=== PATIENT | female | born 1995 | race Caucasian/White ===

== ENCOUNTER 2018-05-02 22:29 | Emergency (ER) | payer SELFPAY ==
[2018-05-02 23:44] LABS: ABSOLUTE EOSINOPHILS # (AUTO) 0.3 10^3/uL (0.0-0.6); ABSOLUTE LYMPHOCYTES (AUTO) 2.4 10^3/uL (0.5-4.7); ABSOLUTE MONOCYTES (AUTO) 0.7 10^3/uL (0.1-1.4); ABSOLUTE NEUT (AUTO) 8.8 10^3/uL (1.7-8.2); BASOPHILS % (AUTO) 0.4 % (0-2); EOSINOPHILS % (AUTO) 2.1 % (0-6); HEMATOCRIT 41.8 % (36.0-47.0); HEMOGLOBIN 14.2 g/dL (12.0-15.5); LYMPHOCYTES % (AUTO) 19.8 % (13-45); MEAN CORPUSCULAR HEMOGLOBIN 31.2 pg (27.0-33.4); MEAN CORPUSCULAR VOLUME 92 fl (80-97); PLATELET COUNT 303 10^3/uL (150-450); RED BLOOD COUNT 4.56 10^6/uL (3.72-5.28); RED CELL DISTRIBUTION WIDTH 12.4 % (11.5-14.0); SEGMENTED NEUTROPHILS % (AUTO) 71.7 % (42-78); TOTAL CELLS COUNTED % (AUTO) 100 %; WHITE BLOOD COUNT 12.2 10^3/uL (4.0-10.5)
[2018-05-02 23:50] LABS: APPEARANCE,URINE CLEAR; BILIRUBIN,URINE NEGATIVE (NEGATIVE); COLOR,URINE YELLOW; GLUCOSE, URINE NEGATIVE (NEGATIVE); KETONES,URINE NEGATIVE (NEGATIVE); LEUKOCYTE ESTERASE,URINE NEGATIVE (NEGATIVE); NITRITE,URINE NEGATIVE (NEGATIVE); PROTEIN,URINE 30 mg/dL (NEGATIVE); URINE SPECIFIC GRAVITY 1.015
[2018-05-03 00:35] LABS: ALANINE AMINOTRANSFERASE 26 U/L (9-52); ALBUMIN 3.9 g/dL (3.5-5.0); ALKALINE PHOSPHATASE 70 U/L (38-126); ANION GAP 14 (5-19); ASPARTATE AMINO TRANSFERASE 18 U/L (14-36); BILIRUBIN,DIRECT 0.3 mg/dL (0.0-0.4); BILIRUBIN,TOTAL 0.6 mg/dL (0.2-1.3); BLOOD UREA NITROGEN 10 mg/dL (7-20); CALCIUM 9.4 mg/dL (8.4-10.2); CARBON DIOXIDE 27 mmol/L (22-30); CHLORIDE 104 mmol/L (98-107); GLUCOSE 81 mg/dL (75-110); POTASSIUM 4.3 mmol/L (3.6-5.0); SODIUM 144.7 mmol/L (137-145); TOTAL PROTEIN 7.4 g/dL (6.3-8.2)
[2018-05-03] MEDS ORDERED: MORPHINE SULFATE 10 MG/ML INJ IV ONE ×2 (00:36→02:22)
[2018-05-03] MEDS ORDERED: NORMAL SALINE 1000 ML 1,000 ML IV ONE (00:36)
--- NOTE | 2018-05-03 00:36 | ER Document Report ---
ED GI/ - General Chief Complaint: Abdominal Pain Stated Complaint: RIGHT SIDE PAIN Time Seen by Provider: 05/03/18 00:29 Notes: The patient is a 22-year-old female who presents with 3 days of intermittent right upper quadrant abdominal pain is worse when she coughs or pushes on her abdomen. She denies nausea, vomiting, flank pain, diarrhea, constipation, dysuria, hematuria, rash or right lower quadrant abdominal pain (despite medical referral coordinator note). TRAVEL OUTSIDE OF THE [place] IN LAST 30 DAYS: No - Related Data Allergies/Adverse Reactions: No Known Allergies Allergy (Verified 09/09/16 08:30) Past Medical History - General Information source: Patient - Social History Smoking Status: Unknown if Ever Smoked Family History: Reviewed & Not Pertinent - Old toward on the day of will Pulmonary Medical History: Reports: Hx Asthma Neurological Medical History: Reports: Hx Migraine Skin Medical History: Reports Hx MRSA Past Surgical History: Reports: Hx Tonsillectomy - adnoids - Immunizations Immunizations up to date: Yes Hx Diphtheria, Pertussis, Tetanus Vaccination: Yes Review of Systems - Review of Systems Notes: REVIEW OF SYSTEMS: CONSTITUTIONAL: -fevers, -chills EENT: -eye pain, -difficulty swallowing, -nasal congestion CARDIOVASCULAR: -chest pain, -syncope. RESPIRATORY: -cough, -SOB GASTROINTESTINAL: RUQ abdominal pain, -nausea, -vomiting, -diarrhea GENITOURINARY: -dysuria, -hematuria MUSCULOSKELETAL: -back pain, -neck pain SKIN: -rash or skin lesions. HEMATOLOGIC: -easy bruising or bleeding. LYMPHATIC: -swollen, enlarged glands. NEUROLOGICAL: -altered mental status or loss of consciousness, -headache, - neurologic symptoms PSYCHIATRIC: -anxiety, -depression. ALL OTHER SYSTEMS REVIEWED AND NEGATIVE. Physical Exam - Vital signs Vitals: Temp Pulse Resp BP Pulse Ox 98.8 F 104 H 22 H 122/67 97 05/02/18 22:52 05/02/18 22:52 05/02/18 22:52 05/02/18 22:52 05/02/18 22:52 - Notes Notes: PHYSICAL EXAMINATION: GENERAL: Well-appearing, well-nourished and in no acute distress. HEAD: Atraumatic, normocephalic. EYES: Pupils equal round and reactive to light, extraocular movements intact, sclera anicteric, conjunctiva are normal. ENT: nares patent, oropharynx clear without exudates. Moist mucous membranes. NECK: Normal range of motion, supple without lymphadenopathy LUNGS: Breath sounds clear to auscultation bilaterally and equal. No wheezes rales or rhonchi. HEART: Mild tachycardia, regular rhythm. ABDOMEN: Soft, mild RUQ tenderness, normoactive bowel sounds. No guarding, no rebound. No masses appreciated. EXTREMITIES: Normal range of motion, no pitting or edema. No cyanosis. NEUROLOGICAL: Cranial nerves grossly intact. Normal speech, normal gait. Normal sensory and motor exams. PSYCH: Normal mood, normal affect. SKIN: Warm, Dry, normal turgor, no rashes or lesions noted. Course - Re-evaluation Re-evalutation: Patient with right upper quadrant abdominal pain and nausea. Ultrasound shows evidence of cholelithiasis and she had a positive sonographic Gupta sign. Her LFTs and bilirubin were normal. Initially, patient said she will speak to the surgeon to discuss removal today due to the symptomatic cholelithiasis. She was kept n.p.o. However, she began to feel much better and started to eat multiple candy bars and chips that her friend brought her, even though she was told that she had to remain n.p.o. Patient said that she would follow-up with the surgeon as an outpatient since she was feeling much better to discuss scheduling a cholecystectomy. Patient given very strict return precautions, especially for acute cholecystitis symptoms and she understands. She will eat a low-fat diet and will follow-up with the surgery clinic tomorrow. - Vital Signs Vital signs: Temp Pulse Resp BP Pulse Ox 98.8 F 104 H 22 H 122/67 97 05/02/18 22:52 05/02/18 22:52 05/02/18 22:52 05/02/18 22:52 05/02/18 22:52 - Laboratory Result Diagrams: 05/02/18 23:30 05/02/18 23:30 Laboratory results interpreted by me: 05/02/18 05/02/18 23:30 23:30 WBC 12.2 H Absolute Neutrophils 8.8 H Urine Protein 30 H Urine Urobilinogen 4.0 H - Diagnostic Test Radiology reviewed: Image reviewed, Reports reviewed Radiology results interpreted by me: RUShantel US: Cholelithiasis with positive sonographic Gupta sign. If surgery is not initially considered, consider follow-up hepatobiliary scan to better evaluate for cholecystitis. Discharge - Discharge Clinical Impression: Cholelithiasis Qualifiers: Cholelithiasis location: other site Biliary obstruction: without biliary obstruction Qualified Code(s): K80.80 - Other cholelithiasis without obstruction Condition: Stable Disposition: HOME, SELF-CARE Additional Instructions: You must follow-up with the surgeon this week for further evaluation and treatment. Return immediately to the ER if the pain becomes very severe, he began to have uncontrollable vomiting or you have fevers. ABDOMINAL PAIN: There are many causes of abdominal pain. Pain can mean a serious problem requiring surgery (such as appendicitis). It can also be an innocent problem that goes away on its own (such as a viral infection). Often, time must pass to determine the cause of pain. The physician does not feel that hospitalization is necessary, at present. Things may change within the next 24 hours. Call the doctor or come back for re- examination if any problems occur, such as: (1) Pain that becomes more severe, steady, or becomes concentrated in one specific area. Also, pain that is more severe with movement or coughing. (2) Vomiting that persists or becomes more frequent. (3) Blood in the vomitus, urine, or bowel movements. Blood in the stool may have a tarry or black appearance. (4) Shaking chills or fever greater than 100 degrees F. (5) The abdomen becomes more distended or swollen. (6) Bowel movements cease. (7) Failure to improve as expected. GALLBLADDER DISEASE: Your evaluation shows evidence of gallbladder disease. The gallbladder is a pouch under the liver which stores bile. Stones, infection, or irritation of the gallbladder cause attacks of pain. Certain foods -- fats in particular -- may provoke attacks. The usual treatment for gallbladder disease is surgical removal of the gallbladder -- called a cholecystectomy. You will be referred to a physician qualified to advise you on the best treatment for your problem. Hospitalization is not necessary. Take clear liquids only until you are painfree. After that, you should stay on a low-fat diet, with frequent SMALL meals. Call the doctor or return at once if you develop severe pain, repeated vomiting, fever, or jaundice (a yellow color in the skin and whites of the eyes) . LOW-FAT DIET: The physician has recommended a low-fat diet. This diet is often used for gallbladder or pancreas problems. Your meals should be high-carbohydrate (potato, apples, noodles, breads, vegetables). Eat fish or skinless chicken (boiled or baked rather than fried) for protein. Beans and peas are good sources of fat-free protein. Soups are usually very low-fat. Don't eat anything fried. Avoid red meats. Avoid most dairy products. Skim milk and non-fat yogurt are OK. Most popular cheeses are very high-fat. Don't add butter or sauces -- use lemon or pepper instead. If you like salads, use one of the new "non-fat" dressings. "Fast Food" is "fat food." There is virtually nothing from a typical fast- food restaurant that you can eat. Fish patties and chicken nuggets are almost always deep-fat fried. "Special Sauces" are mostly fat. TORADOL INJECTION: You have been given an injection of ketorolac tromethamine (Toradol). This is an excellent, safe drug for pain control. It also has potent antiinflammatory action. You should have significant pain relief within about one hour. Toradol is not addicting and is non-sedating. It does not interfere with driving or work. Call or return if you develop itching, hives, shortness of breath, or rash. PAIN MEDICATION INJECTION: You have received an injection of a pain medication. You should experience significant pain relief within 45 minutes. This drug is a narcotic - - it will impair your judgement, slow your reaction time and make you sleepy ( as well as relieve your pain). Narcotics also can cause nausea. You should not drive, work with machinery, or perform any task requiring mental alertness until all effects of the medication are gone -- six to eight hours. Do not take any alcohol, or sedatives, and do not take any other medication without checking with your physician. AN[place] MEDICATION: You have been given a medication to suppress nausea and vomiting. This type of medication can be given as a shot, pill, or suppository. It will usually last for many hours. Pills and shots usually last six to eight hours, suppositories last about 12 hours. For the typical illness, only one or two doses of the medication may be necessary. Mild lightheadedness may occur. This type of medicine can cause drowsiness. Do not drive or operate dangerous machinery while under its influence. Do not mix with alcohol. See your doctor at once if you have muscle spasms or tightness, or uncontrollable motions (particularly of the neck, mouth, or jaw). Persistent vomiting or severe lightheadedness should also be evaluated by the physician. ORAL NARCOTIC MEDICATION: You have been given a prescription for pain control. This medication is a narcotic. It's best taken with food, as nausea can result if taken on an empty stomach. Don't operate machinery or drive within six hours of taking this medication. Do not combine this medicine with alcohol, or with any medication which can cause sedation (such as cold tablets or sleeping pills) unless you get permission from the physician. Narcotics tend to cause constipation. If possible, drink plenty of fluids and eat a diet high in fiber and fruits. Please be aware that prescription narcotics also have the potential for abuse. People become addicted to these medications because of the general sense of wellbeing that they induce. This feeling along with a significant reduction in tension, anxiety, and aggression provides a stimulating seductive quality to these drugs. Once your pain is under control, we encourage you to discard your unused narcotics. FOLLOW-UP CARE: If you have been referred to a physician for follow-up care, call the physician s office for an appointment as you were instructed or within the next two days. If you experience worsening or a significant change in your symptoms, notify the physician immediately or return to the Emergency Department at any time for re-evaluation. Prescriptions: Hydrocodone/Acetaminophen [[place] 5-325 mg Tablet] 1 tab PO Q6H PRN #10 tablet PRN Reason: Ondansetron [Zofran Odt 4 mg Tablet] 1 - 2 tab PO Q4H PRN #15 tab.rapdis PRN Reason: For Nausea/Vomiting Referrals: SURGICALIST,SURGICAL MD [ACTIVE STAFF] - Follow up tomorrow SURGERY [Provider Group] - Follow up tomorrow
--- NOTE | 2018-05-03 02:09 | RADIOLOGY REPORT (SQ) ---
Ultrasound right upper quadrant on 05/03/2018 at 1:49 AM CLINICAL INDICATION: Right upper quadrant pain COMPARISON: None FINDINGS: Multiple sonographic images are obtained throughout the right upper quadrant, both transverse and sagittal images are obtained. Visualized aorta appears unremarkable without evidence of an aneurysm. Visualized liver is homogeneous without focal lesion or evidence of intrahepatic biliary ductal dilatation. No free fluid is noted in the right upper quadrant. Visualized hepatic vasculature is patent and with a normal directional flow. Right kidney shows no hydronephrosis. There are multiple echogenic foci with posterior shadowing in the gallbladder consistent with multiple gallstones nearly filling the gallbladder. No definite gallbladder wall thickening or pericholecystic fluid is noted. Technologist noted a positive sonographic Gupta sign. The common duct measures 5 mm which is within normal limits mitigating against obstruction of the biliary tree. IMPRESSION: Cholelithiasis with positive sonographic Gupta sign. If surgery is not initially considered, consider follow-up hepatobiliary scan to better evaluate for cholecystitis.
[2018-05-03] MEDS ORDERED: KETOROLAC TROMETHAMINE INJ/PF 30 MG/1 ML SDV IV ONE (02:22)
[2018-05-03] MEDS ORDERED: HYDROCODONE/ACETAMINOPHEN 5-325 MG TABLET PO ONE (05:12)
[2018-05-03 05:58] VITALS: BP 103/88
== END 2018-05-03 05:58 | disposition home or self-care (01) ==
LOC: ER 22:29
DX: K80.80 Other cholelithiasis without obstruction (principal); R10.11 Right upper quadrant pain; R11.0 Nausea; Z86.14 Personal history of Methicillin resistant Staphylococcus aureus infection
CPT/HCPCS: 96376; 99284; 96361; 96374; 96375; 36415; 85025; 81025; 80053; 81001; 76705; J1885; J2270; J7030

== ENCOUNTER 2018-05-03 21:34 | Observation (INO) | payer SELFPAY ==
[2018-05-03 22:51] LABS: ABSOLUTE EOSINOPHILS # (AUTO) 0.3 10^3/uL (0.0-0.6); ABSOLUTE LYMPHOCYTES (AUTO) 2.2 10^3/uL (0.5-4.7); ABSOLUTE MONOCYTES (AUTO) 0.7 10^3/uL (0.1-1.4); ABSOLUTE NEUT (AUTO) 6.4 10^3/uL (1.7-8.2); BASOPHILS % (AUTO) 0.3 % (0-2); EOSINOPHILS % (AUTO) 3.3 % (0-6); HEMATOCRIT 37.6 % (36.0-47.0); HEMOGLOBIN 13.3 g/dL (12.0-15.5); MEAN CORPUSCULAR HEMOGLOBIN 32.4 pg (27.0-33.4); MEAN CORPUSCULAR HGB CONC 35.3 g/dL (32.0-36.0); MEAN CORPUSCULAR VOLUME 92 fl (80-97); MONOCYTES % (AUTO) 7.1 % (3-13); PLATELET COUNT 267 10^3/uL (150-450); RED BLOOD COUNT 4.09 10^6/uL (3.72-5.28); RED CELL DISTRIBUTION WIDTH 12.3 % (11.5-14.0); SEGMENTED NEUTROPHILS % (AUTO) 66.3 % (42-78); TOTAL CELLS COUNTED % (AUTO) 100 %; WHITE BLOOD COUNT 9.7 10^3/uL (4.0-10.5)
[2018-05-03 22:53] LABS: APPEARANCE,URINE SLIGHTLY-CLOUDY; BILIRUBIN,URINE NEGATIVE (NEGATIVE); COLOR,URINE YELLOW; GLUCOSE, URINE NEGATIVE (NEGATIVE); KETONES,URINE NEGATIVE (NEGATIVE); LEUKOCYTE ESTERASE,URINE NEGATIVE (NEGATIVE); NITRITE,URINE NEGATIVE (NEGATIVE); PROTEIN,URINE 30 mg/dL (NEGATIVE); URINE SPECIFIC GRAVITY 1.021
[2018-05-03] MEDS ORDERED: MORPHINE SULFATE 10 MG/ML INJ IV ONE (23:07)
[2018-05-03] MEDS ORDERED: NORMAL SALINE 1000 ML 1,000 ML IV ONE (23:07)
[2018-05-03] MEDS ORDERED: METOCLOPRAMIDE HCL INJ/PF 10 MG/2 ML SDV IV ONE (23:07)
--- NOTE | 2018-05-03 23:07 | ER Document Report ---
ED Medical Screen (RME) - General Chief Complaint: Abdominal Pain Stated Complaint: ABDOMINAL PAIN Time Seen by Provider: 05/03/18 23:04 Mode of Arrival: Wheelchair Information source: Patient TRAVEL OUTSIDE OF THE [place] IN LAST 30 DAYS: No - HPI Patient complains to provider of: Right-sided abdominal pain Notes: 05/03/18 23:06 22-year-old female presenting to the emergency room for the second time in 48 hours complaining of right-sided abdominal pain, worsening today, states when she moves or takes a deep breath she has severe pain in the right upper quadrant , she is having associated nausea as well as chills and generalized weakness, states she did not eat anything today but her symptoms, ultrasound yesterday showed cholelithiasis 05/03/18 23:06 RAPID MEDICAL EVALUATION DISCLOSURE I have seen this patient as part of a Rapid Medical Evaluation and, if applicable, placed any initially appropriate orders. The patient will be seen and fully evaluated, including a full history and physical exam, by a provider ( in Main ED or Fast Track) when a room becomes available. - Related Data Allergies/Adverse Reactions: No Known Allergies Allergy (Verified 09/09/16 08:30) Past Medical History Pulmonary Medical History: Reports: Hx Asthma Neurological Medical History: Reports: Hx Migraine Renal/ Medical History: Denies: Hx Peritoneal Dialysis Skin Medical History: Reports Hx MRSA Past Surgical History: Reports: Hx Tonsillectomy - adnoids - Immunizations Immunizations up to date: Yes Hx Diphtheria, Pertussis, Tetanus Vaccination: Yes Physical Exam - Vital signs Vitals: Temp Pulse Resp BP Pulse Ox 98.8 F 103 H 16 99/59 L 100 05/03/18 22:08 05/03/18 22:08 05/03/18 22:08 05/03/18 22:08 05/03/18 22:08 Course - Vital Signs Vital signs: Temp Pulse Resp BP Pulse Ox 98.8 F 103 H 16 99/59 L 100 05/03/18 22:08 05/03/18 22:08 05/03/18 22:08 05/03/18 22:08 05/03/18 22:08 - Laboratory Result Diagrams: 05/03/18 22:15 05/03/18 22:15 Laboratory results interpreted by me: 05/03/18 22:15 Urine Protein 30 H Urine Urobilinogen 4.0 H
[2018-05-03 23:09] LABS: ALANINE AMINOTRANSFERASE 49 U/L (9-52); ALBUMIN 3.8 g/dL (3.5-5.0); ALKALINE PHOSPHATASE 77 U/L (38-126); ANION GAP 13 (5-19); ASPARTATE AMINO TRANSFERASE 30 U/L (14-36); BILIRUBIN,DIRECT 0.3 mg/dL (0.0-0.4); BILIRUBIN,TOTAL 0.4 mg/dL (0.2-1.3); BLOOD UREA NITROGEN 11 mg/dL (7-20); CALCIUM 9.3 mg/dL (8.4-10.2); CARBON DIOXIDE 28 mmol/L (22-30); CHLORIDE 103 mmol/L (98-107); GLUCOSE 87 mg/dL (75-110); LIPASE 31.6 U/L (23-300); POTASSIUM 4.4 mmol/L (3.6-5.0); SODIUM 143.6 mmol/L (137-145); TOTAL PROTEIN 7.1 g/dL (6.3-8.2)
--- NOTE | 2018-05-04 00:37 | ER Document Report ---
ED GI/ - General Chief Complaint: Abdominal Pain Stated Complaint: ABDOMINAL PAIN Time Seen by Provider: 05/03/18 23:04 Mode of Arrival: Wheelchair Notes: Patient is a 22-year-old female comes emergency department for chief complaint of upper abdominal pain specifically right upper quadrant pain. She was evaluated here yesterday, diagnosed with cholelithiasis, patient had improvement and decision was made for patient to go home, patient states however her pain returned shortly after and has been persistent and worse since then. She states she did eat at 3 PM, a small amount of salad, unable to eat otherwise. She denies vomiting, fever, other locations of pain. She denies any daily medications, only surgery was tonsillectomy. LMP within the past month. TRAVEL OUTSIDE OF THE [place] IN LAST 30 DAYS: No - Related Data Allergies/Adverse Reactions: No Known Allergies Allergy (Verified 09/09/16 08:30) Past Medical History - General Information source: Patient - Social History Smoking Status: Current Every Day Smoker Chew tobacco use (# tins/day): No Frequency of alcohol use: None Drug Abuse: None Family History: Reviewed & Not Pertinent - Old toward on the day of will Patient has suicidal ideation: No Patient has homicidal ideation: No Pulmonary Medical History: Reports: Hx Asthma Neurological Medical History: Reports: Hx Migraine Renal/ Medical History: Denies: Hx Peritoneal Dialysis Skin Medical History: Reports Hx MRSA Past Surgical History: Reports: Hx Tonsillectomy - adnoids - Immunizations Immunizations up to date: Yes Hx Diphtheria, Pertussis, Tetanus Vaccination: Yes Review of Systems - Review of Systems Constitutional: No symptoms reported EENT: No symptoms reported Cardiovascular: No symptoms reported Respiratory: No symptoms reported Gastrointestinal: See HPI Genitourinary: No symptoms reported Female Genitourinary: No symptoms reported Musculoskeletal: No symptoms reported Skin: No symptoms reported Hematologic/Lymphatic: No symptoms reported Neurological/Psychological: No symptoms reported Physical Exam - Vital signs Vitals: Temp Pulse Resp BP Pulse Ox 98.8 F 103 H 16 99/59 L 100 05/03/18 22:08 05/03/18 22:08 05/03/18 22:08 05/03/18 22:08 05/03/18 22:08 - Notes Notes: GENERAL: Patient appears tired and slightly disheveled, no acute distress HEAD: Normocephalic, atraumatic. EYES: Pupils equal, round, and reactive to light. Extraocular movements intact. ENT: Oral mucosa moist, tongue midline. Patent airway. NECK: Full range of motion. Supple. Trachea midline. LUNGS: Clear to auscultation bilaterally, no wheezes, rales, or rhonchi. No respiratory distress. HEART: Regular rate and rhythm. No murmur ABDOMEN: Right upper quadrant tenderness with positive Gupta sign, mild generalized tenderness otherwise. Non-distended. Bowel sounds present in all 4 quadrants. EXTREMITIES: Moves all 4 extremities spontaneously. No edema, normal radial and dorsalis pedis pulses bilaterally. No cyanosis. BACK: no cervical, thoracic, lumbar midline tenderness. No saddle anesthesia, normal distal neurovascular exam. NEUROLOGICAL: Alert and oriented x3. Normal speech. [cranial nerves II through XII grossly intact]. PSYCH: Normal affect, normal mood. SKIN: Warm, dry, normal turgor. No rashes or lesions noted. Course - Re-evaluation Re-evalutation: Laboratory workup without any significant change. Patient does have pain on examination, positive Gupta's sign, appears uncomfortable. This improved with medications. Because of ongoing persistent symptoms with her cholelithiasis will discuss with surgeon. She had an ultrasound yesterday showing cholelithiasis without pericholecystic fluid or obstruction. No evidence of developed obstruction on her labs. Patient states she cannot continue with this , she is hoping to be evaluated by surgery to get her gallbladder out. 05/04/18 01:[address] Murphy, surgery, patient will be admitted to the surgical service, kept n.p.o., given IV fluids, as needed medications, and Zosyn. Plan is to has patient on the surgical schedule this morning. I discussed this in detail with patient and family as well. They state understanding and agreement with plan. - Vital Signs Vital signs: Temp Pulse Resp BP Pulse Ox 98.8 F 103 H 16 99/59 L 100 05/03/18 22:08 05/03/18 22:08 05/03/18 22:08 05/03/18 22:08 05/03/18 22:08 - Laboratory Result Diagrams: 05/03/18 22:15 05/03/18 22:15 Laboratory results interpreted by me: 05/03/18 22:15 Urine Protein 30 H Urine Urobilinogen 4.0 H Discharge - Discharge Clinical Impression: Upper abdominal pain Cholelithiasis Qualifiers: Cholelithiasis location: gallbladder Cholecystitis presence: without cholecystitis Biliary obstruction: without biliary obstruction Qualified Code(s) : K80.20 - Calculus of gallbladder without cholecystitis without obstruction Condition: Stable Disposition: ADMITTED OBSERVATION Admitting Provider: Surgicalist Unit Admitted: Surgical Floor
[2018-05-04] MEDS ORDERED: PIPERACILLIN/TAZOBACTAM 3.375 GM VIAL IV ONE (01:07)
[2018-05-04] MEDS ORDERED: MORPHINE SULFATE 10 MG/ML INJ IV PRN ×2 (01:08→15:51)
[2018-05-04] MEDS: NORMAL SALINE 1000 ML 1,000 ML IV PRN ×2 (01:36→10:42)
--- NOTE | 2018-05-04 07:00 | HISTORY AND PHYSICAL E ---
History and Physical NAME: LOUIS MICHAELS : 1995 AGE: 22Y ADMITTED: 05/04/2018 ROOM: ED11 CHIEF COMPLAINT: Right upper quadrant pain. HISTORY OF PRESENT ILLNESS: This is a 22-year-old female who has been complaining of right upper quadrant pains for the past few days. She was initially seen in the emergency room yesterday and had an ultrasound of the gallbladder which showed stones with positive Gupta's sign. She was given pain medication and patient discharged. However, pain recurred and came back for more severe right upper quadrant pains with nausea. REVIEW OF SYSTEMS: Denies any fever or chills, though she claims she feels cold. Denies any headaches. Denies the cough or chest pains. She has severe right upper quadrant pains, more or less localized. Extremities: Denies any weakness. Patient is alert and oriented. Admits to having constipation. SOCIAL HISTORY: Smokes about 1 pack of cigarettes in a week. Denies ethanol use. FAMILY HISTORY: Grandfather has had diabetes mellitus. Both parents are alive and well. ALLERGIES: NONE KNOWN. PHYSICAL EXAMINATION: GENERAL: A well-developed, well-nourished, 23-year-old female alert and oriented, complaining of right upper quadrant pain. HEENT: Neck is supple, no thyromegaly. LUNGS: Clear. HEART: Regular rhythm. ABDOMEN: Soft with tenderness in the right upper quadrant. EXTREMITIES: No edema. IMPRESSION: ACUTE CALCULUS CHOLECYSTITIS. PLAN: Patient to be kept NPO and start IV antibiotics. She is for laparoscopic cholecystectomy by Dr. Khan today. DICTATING PHYSICIAN: SERVANDO FUENTES M.D. [id number] Y#: [id number] ID: [id number] JOB#: [id number] ACCT: [id number] cc:Betsy ADORNO MD
--- NOTE | 2018-05-04 09:53 | PDOC PROGRESS REPORT ---
Subjective Progress Note for:: 05/04/18 Subjective:: Persistent right upper quadrant abdominal pain for the past week. No fever and no jaundice. Reason For Visit: CHOLELITHIASIS,PAIN OF UPPER ABDOMEN Physical Exam Vital Signs: Temp Pulse Resp BP Pulse Ox 98.4 F 67 16 105/60 100 05/04/18 08:44 05/04/18 08:44 05/04/18 08:44 05/04/18 08:44 05/04/18 08:44 Intake & Output 05/03/18 05/04/18 05/05/18 06:59 06:59 06:59 Weight 70.4 kg General appearance: PRESENT: no acute distress, cooperative Eye exam: PRESENT: conjunctiva pink Respiratory exam: PRESENT: clear to auscultation lesley Cardiovascular exam: PRESENT: RRR GI/Abdominal exam: PRESENT: other - Soft, nondistended, focal tenderness to palpation in the right upper quadrant with positive Gupta sign. Assessment & Plan - Diagnosis (1) Cholecystitis Is this a current diagnosis for this admission?: Yes Plan: Patient with gallstones and evidence of cholecystitis. With the persistence of symptoms for the past week, recommend laparoscopic cholecystectomy. I have discussed with the patient the risk and benefits of the procedure. Including risk of infection, bleeding, adjacent structure injury such as bile duct or intestinal injury, postcholecystectomy diarrhea, mistaken diagnosis, possibility of conversion to an open procedure. Patient understands and agrees to proceed.
[2018-05-04] MEDS ORDERED: GLYCOPYRROLATE 1 MG/5 ML SYRINGE ONE (09:55)
[2018-05-04] MEDS ORDERED: VECURONIUM BROMIDE INJ 10 MG VIAL IV ONE (09:55)
[2018-05-04] MEDS ORDERED: SUCCINYLCHOLINE CHLORIDE INJ 200 MG/10 ML VIAL ONE (09:55)
[2018-05-04] MEDS ORDERED: NEOSTIGMINE METHYLSULFATE 10 MG/10 ML VIAL ONE (09:55)
[2018-05-04] MEDS ORDERED: NORMAL SALINE 1000 ML 1,000 ML IV ONE (11:00)
[2018-05-04] MEDS ORDERED: BUPIVACAINE HCL 0.25 % INJ/PF (2.5 MG/1 ML) 30 ML VIAL ONE (14:19)
[2018-05-04] MEDS ORDERED: LIDOCAINE 2% INJ-PF (20 MG/ML) 10 ML AMPUL ONE (15:39)
[2018-05-04] MEDS ORDERED: DEXAMETHASONE SOD PHOSPHATE INJ 4 MG/1 ML VIAL ONE (15:40)
[2018-05-04] MEDS ORDERED: MIDAZOLAM 2 MG/2 ML INJ ONE (15:40)
[2018-05-04] MEDS ORDERED: FENTANYL CITRATE INJ/PF 100 MCG/2 ML AMPUL ONE ×2 (15:40→18:08)
[2018-05-04] MEDS ORDERED: ONDANSETRON HCL INJ/PF 4 MG/2 ML SDV ONE (15:40)
[2018-05-04] MEDS ORDERED: PROPOFOL INJ 200 MG/20 ML VIAL IV ONE (15:41)
[2018-05-04] MEDS ORDERED: ACETAMINOPHEN 1,000 MG/100 ML RTUPB IV ONE (15:41)
[2018-05-04] MEDS ORDERED: PROMETHAZINE HCL INJ 25 MG/1 ML VIAL IV PRN ×2 (15:51)
[2018-05-04] MEDS ORDERED: MEPERIDINE HCL/PF INJ 25 MG/1 ML DISP.SYRIN IV PRN (15:51)
[2018-05-04] MEDS ORDERED: ONDANSETRON HCL INJ/PF 4 MG/2 ML SDV IV PRN ×2 (15:51→17:36)
[2018-05-04] MEDS ORDERED: DIPHENHYDRAMINE HCL 50 MG/ML VIAL IV PRN (15:51)
[2018-05-04] MEDS ORDERED: FENTANYL CITRATE INJ/PF 100 MCG/2 ML AMPUL IV PRN ×3 (15:51)
[2018-05-04] MEDS ORDERED: PIPERACILLIN SODIUM/TAZOBACTAM 3.375 GM in NORMAL SALINE 100 ML IV ONE (16:30)
--- NOTE | 2018-05-04 17:36 | Operative Report ---
Operative Report DATE OF SURGERY: 05/04/18 PREOPERATIVE DIAGNOSIS: Acute cholecystitis POSTOPERATIVE DIAGNOSIS: Acute cholecystitis, cholelithiasis, pelvic inflammatory disease. OPERATION: Laparoscopic cholecystectomy, laparoscopic peritoneal cavity washout , laparoscopic pelvic lysis of adhesions. SURGEON: JOE AVENDANO ANESTHESIA: GA TISSUE REMOVED OR ALTERED: Gallbladder. Pelvic fluid submitted for Gram stain and culture. Urine submitted for Gram stain and culture. COMPLICATIONS: None ESTIMATED BLOOD LOSS: Minimal INTRAOPERATIVE FINDINGS: Adhesions between the lateral liver and the anterior abdominal wall. Turbid fluid throughout the peritoneal cavity especially the pelvis. Right ovarian cyst with inflammatory changes of the right ovary along with adhesion of the right colon to the right pelvic sidewall and to the right ovary. Evidence of a left tubo-ovarian abscess with hydrosalpinx of the left side. Findings are consistent with pelvic inflammatory disease. Gallstones with gallbladder wall thickening. PROCEDURE: Informed consent was obtained. Patient was brought to the operating room placed operating table in supine position. After satisfactory induction of general anesthesia, patient's abdomen was prepped and draped in usual sterile fashion. A supraumbilical midline incision was made and dissection carried down to the fascia the peritoneal cavity entered without difficulty. Gutierrez trocar was inserted. Pneumoperitoneum produced good patient toleration. 5 mm trocar was placed in the subxiphoid location.Two 5 mm trochars were placed in the right subcostal location. Please note the intraoperative findings. There was free fluid in the peritoneal cavity that appears slightly turbid especially in the pelvis. There were light adhesions between the right lobe of the liver and the anterior abdominal wall. The liver adhesions were taken down. The gallbladder. Markedly distended and it had to be decompressed with a decompression needle. The gallbladder wall appears thickened as well. In the pelvis there was turbid fluid along with adhesion of the right colon to the right pelvic sidewall. This adhesion was taken down bluntly revealing an inflamed appearing right ovary with cysts. The right ovary had been adhered to the right colon. The left ovary was identified it also appeared to be adhered to the pelvis with appearance of a tubo-ovarian abscess on the left with hydrosalpinx. The appendix was visualized and appeared normal. Gynecology consultation was obtained intraoperatively. Gynecology impression was that of a left tubo-ovarian abscess with pelvic inflammatory disease. Recommendation was to irrigate the pelvis and place her on antibiotics postoperatively. Of note some of the pelvic fluid was aspirated and submitted for Gram stain and culture. At the end of the case patient was straight cathed and the urine was submitted for Gram stain and culture as well. The the gallbladder was grasped and retracted cephalad over the dome of the liver. The infundibulum of the gallbladder was grasped retracted laterally and inferiorly thus exposing calot's triangle. The cystic duct gallbladder junction was clearly identified and the cystic duct was clipped and divided. Cystic artery was likewise taken. Of note there was an enlarged Calot's node that was initially peeled off and it was clipped to obtain hemostasis of this node. The gallbladder was taken off the gallbladder bed using the hook electrocautery technique. The gallbladder was removed with an Endobag through the Gutierrez trocar site fascial defect. Hemostasis appeared excellent. At the end of the case the peritoneal cavity was irrigated and irrigant aspirated out. The pelvis especially was irrigated and aspirated. All trochars were removed under the direct vision a laparoscope to ensure hemostasis. The Gutierrez trocar site fascial defect was closed with interrupted Vicryl sutures. All skin incisions were closed with subcuticular interrupted Monocryl sutures. Marcaine was injected at the port sites. Patient tolerated procedure well no apparent complications and was taken to the recovery area in stable condition.
[2018-05-04] MEDS ORDERED: DOXYCYCLINE HYCLATE INJ 100 MG VIAL IV ONE (17:40)
--- NOTE | 2018-05-04 20:17 | PDOC PROGRESS REPORT ---
Subjective Progress Note for:: 05/04/18 Subjective:: Patient complains of diffuse abdominal pain and restlessness. Reason For Visit: CHOLELITHIASIS,PAIN OF UPPER ABDOMEN Physical Exam Vital Signs: Temp Pulse Resp BP Pulse Ox 97.6 F 58 L 12 113/63 98 05/04/18 18:38 05/04/18 18:38 05/04/18 18:38 05/04/18 18:38 05/04/18 18:38 Intake & Output 05/03/18 05/04/18 05/05/18 06:59 06:59 06:59 Intake Total 3500 Output Total 1830 Balance 1670 Weight 70.4 kg General appearance: PRESENT: disheveled, mild distress Eye exam: PRESENT: conjunctiva pink Respiratory exam: PRESENT: clear to auscultation lesley Cardiovascular exam: PRESENT: RRR GI/Abdominal exam: PRESENT: other - Soft, nondistended, mild diffuse abdominal tenderness with no peritoneal signs. Assessment & Plan - Diagnosis (1) Cholecystitis Is this a current diagnosis for this admission?: Yes Plan: Status post laparoscopic cholecystectomy. (2) Pelvic inflammatory disease (PID) Is this a current diagnosis for this admission?: Yes Plan: Status post laparoscopic abdominal cavity washout and pelvic adhesion lysis. Patient's diffuse abdominal pain likely due to her PID manipulation. Exam demonstrates a very soft abdomen and she does not appear toxic. But she has not fully recover from her anesthesia. I will try Toradol for pain control. I will need to discuss the findings of PID with the patient when she is alert. I was reluctant to discuss these findings with the patient's family due to the personal nature of this disease. Patient is on IV antibiotics.
[2018-05-04] MEDS: CEFOXITIN SODIUM 2 GM in NORMAL SALINE 100 ML IV SCH (21:00)
[2018-05-04] MEDS ORDERED: CEFOXITIN SODIUM 2 GM in DEXTROSE 5%-WATER 100 ML IV SCH (21:00)
[2018-05-04] MEDS ORDERED: CEFOXITIN 1 GM/D5W RTU 1 GM/50 ML RTUPB IV SCH (22:00)
[2018-05-04] MEDS: MORPHINE SULFATE 10 MG/ML INJ IV PRN (22:39)
[2018-05-04] MEDS: DOXYCYCLINE HYCLATE 100 MG in DEXTROSE 5%-WATER 250 ML IV SCH (22:42)
--- NOTE | 2018-05-04 22:56 | PDOC PROGRESS REPORT ---
Subjective Progress Note for:: 05/04/18 Reason For Visit: CHOLELITHIASIS,PAIN OF UPPER ABDOMEN Physical Exam Vital Signs: Temp Pulse Resp BP Pulse Ox 97.4 F 60 16 115/69 99 05/04/18 22:00 05/04/18 22:14 05/04/18 22:00 05/04/18 22:00 05/04/18 22:00 Intake & Output 05/03/18 05/04/18 05/05/18 06:59 06:59 06:59 Intake Total 3500 Output Total 1830 Balance 1670 Weight 70.4 kg Assessment & Plan - Diagnosis (1) Cholecystitis Is this a current diagnosis for this admission?: Yes (2) Pelvic inflammatory disease (PID) Is this a current diagnosis for this admission?: Yes Plan: Patient awake and alert now. And I have discussed with her the findings of pelvic inflammatory disease. At her request I have discussed this finding with her mother as well. Patient pending [facility] consultation tomorrow. Will follow their recommendation for treatment and workup. She may be discharged to home tomorrow if gynecology clears her for discharge.
[2018-05-05] MEDS: CEFOXITIN SODIUM 2 GM in NORMAL SALINE 100 ML IV SCH ×4 (02:58→20:54)
[2018-05-05] MEDS: MORPHINE SULFATE 10 MG/ML INJ IV PRN (02:58)
--- NOTE | 2018-05-05 09:55 | PDOC PROGRESS REPORT ---
Subjective Progress Note for:: 05/05/18 Subjective:: Feels much better today. Mild diffuse abdominal pain. Reason For Visit: CHOLELITHIASIS,PAIN OF UPPER ABDOMEN Physical Exam Vital Signs: Temp Pulse Resp BP Pulse Ox 98.6 F 51 L 14 112/66 100 05/05/18 08:05 05/05/18 08:05 05/05/18 08:05 05/05/18 08:05 05/05/18 08:05 Intake & Output 05/04/18 05/05/18 05/06/18 06:59 06:59 06:59 Intake Total 4600 Output Total 1830 Balance 2770 Weight 70.4 kg General appearance: PRESENT: no acute distress, cooperative Respiratory exam: PRESENT: clear to auscultation lesley Cardiovascular exam: PRESENT: RRR GI/Abdominal exam: PRESENT: soft - Soft, nondistended, very mild diffuse abdominal tenderness without peritoneal signs. Much improved from yesterday. Extremities exam: PRESENT: other - No swelling Assessment & Plan - Diagnosis (1) Cholecystitis Is this a current diagnosis for this admission?: Yes Plan: Status post laparoscopic cholecystectomy. Patient looks good. Will discharge home when cleared by gynecology for discharge. (2) Pelvic inflammatory disease (PID) Is this a current diagnosis for this admission?: Yes Plan: Status post pelvic adhesive lysis and abdominal cavity washout. Patient looks good. Will discharge patient home on p.o. antibiotics if okay with gynecology. Will defer to gynecology for further workup and management.
[2018-05-05] MEDS ORDERED: OXYCODONE-ACETAMINOPHEN 5-325 MG TABLET ONE (11:01)
[2018-05-05] MEDS: DOXYCYCLINE HYCLATE 100 MG in DEXTROSE 5%-WATER 250 ML IV SCH ×2 (11:06→22:05)
[2018-05-05] MEDS ORDERED: OXYCODONE-ACETAMINOPHEN 5-325 MG TABLET PO PRN (11:12)
[2018-05-05] MEDS: KETOROLAC TROMETHAMINE INJ/PF 30 MG/1 ML SDV IV PRN ×2 (11:54→20:54)
[2018-05-06] MEDS: CEFOXITIN SODIUM 2 GM in NORMAL SALINE 100 ML IV SCH ×2 (03:05→09:43)
[2018-05-06 10:25] VITALS: BP 109/59
--- NOTE | 2018-05-10 14:08 | PDOC DISCHARGE SUMMARY ---
General - Admit/Disc Date/PCP Admission Date/Primary Care Provider: 05/04/18 01:40 Discharge Date: 05/06/18 - Discharge Diagnosis (1) Cholelithiasis Is this a current diagnosis for this admission?: Yes (2) Pelvic inflammatory disease (PID) Is this a current diagnosis for this admission?: Yes - Additional Information Resuscitation Status: Full Code Discharge Diet: As Tolerated, Regular Discharge Activity: Activity As Tolerated, Balance Activity w/Rest, No Lifting Over 10 Pounds, No Lifting/Push/Pulling, No tub bath, Walk Frequently Home Medications: Doxycycline Hyclate [Vibramycin] 1 tab PO BID 05/06/18 Hydrocodone/Acetaminophen [[place] 5-325 mg Tablet] 1 tab PO Q6HP PRN 05/06/18 History of Present Illness History of Present Illness: LOUIS MICHAELS is a 22 year old female admitted with abdominal pain. She was found to have gallstones, and was taken to the operating room for cholecystectomy. At the time of cholecystectomy, she was found to have pelvic purulence, consistent with PID. Hospital Course Hospital Course: The patient was taken to surgery for her cholelithiasis, and PID was found. The patient's abdomen was copiously irrigated and suctioned. [facility] was consulted. They made antibiotic recommendations. The patient began to improve significantly with antibiotics. The patient began tolerating a diet and ambulating. By 05/06/2018, the patient was ambulating, tolerating a diet, her pain was controlled with oral pain medications, and it was felt that she had reached maximal hospital benefit and was fit for discharge. Physical Exam Vital Signs: Temp Pulse Resp BP Pulse Ox 99.6 F 90 20 109/59 L 99 05/06/18 10:22 05/06/18 10:22 05/06/18 10:22 05/06/18 10:22 05/06/18 10:22 Qualifiers - * PATIENT BEING DISCHARGED WITH ANY OF THE FOLLOWING DIAGNOSIS: No Plan Discharge Plan: Discharge home. Diet: As tolerated. Activity: No lifting greater than 10 pounds 2 weeks. Follow-up with [facility] per their instructions. Follow-up with [facility] in 7-10 days. Doxycycline 100 mg p.o. twice daily 2 weeks. [place] 5/325 mg p.o. every 6 hours as needed pain. Okay to shower. Wash incisions with soap and water. No tub baths or swimming 2 weeks. Time Spent: Less than 30 Minutes
== END 2018-05-06 10:45 | disposition home or self-care (01) ==
LOC: ER 21:34 → EH 05-04 01:40 → 2N 05-04 08:22
PROVIDERS: ATTEND Surgery
PROC: 3E1M38X Irrigation of Peritoneal Cavity using Irrigating Substance, Percutaneous Approach, Diagnostic (ICD-10-PCS; 2018-05-04)
PROC: 0FT44ZZ Resection of Gallbladder, Percutaneous Endoscopic Approach (ICD-10-PCS; principal; 2018-05-04 16:15)
DX: K80.10 Calculus of gallbladder with chronic cholecystitis without obstruction (principal); N73.9 Female pelvic inflammatory disease, unspecified; N83.201 Unspecified ovarian cyst, right side; N70.93 Salpingitis and oophoritis, unspecified; N73.6 Female pelvic peritoneal adhesions (postinfective); F17.210 Nicotine dependence, cigarettes, uncomplicated; K59.00 Constipation, unspecified; Z86.14 Personal history of Methicillin resistant Staphylococcus aureus infection
CPT/HCPCS: 96376; 99285; 96361; 96375; 96365; 36415; 87086; 87205; 87070; 83690; 85025; 81025; 87075; 80053; 81001; 88304 ×2; 47562; 49084; G0378 ×2; J2250; J1100; J0694 ×3; J3490 ×5; J3010; J1885; J2765; J2270 ×3; J0330; J2405; J7060 ×2; J7030 ×2; J2704; J2543; J0131; 790

== ENCOUNTER 2018-08-29 17:36 | Emergency (ER) | payer SELFPAY ==
[2018-08-29 17:52] VITALS: BP 106/64
[2018-08-29] MEDS ORDERED: LORAZEPAM 1 MG TABLET PO ONE (18:28)
[2018-08-29] MEDS ORDERED: FLUOXETINE HCL 20 MG CAPSULE PO ONE (18:28)
[2018-08-29] MEDS ORDERED: BUSPIRONE HCL 10 MG TABLET PO ONE (18:28)
--- NOTE | 2018-08-29 18:29 | ER Document Report ---
ED Psych Disorder / Suicide - General Chief Complaint: Suicidal Ideation Stated Complaint: PSYCH EVAL Time Seen by Provider: 08/29/18 17:42 Notes: This is a 22-year-old female to the emergency department for evaluation of substance abuse. Patient states that she has been using methamphetamines for approximately 2-1/2 years now. States that she recently went to detox but that did not help her. She went right back to using as soon as she got out. Feels a little bit hopeless. Sometimes she feels like she would not care if she was . Not sure if she actually wants help though. Brought here by her mother. Denies any other issues at this time other than not being able to control her emotions and quite tearful. She denies any suicidal plan at this time. Does not want to . TRAVEL OUTSIDE OF THE [place] IN LAST 30 DAYS: No - HPI Severity: Mild Suicide Risk Factors: Substance abuse - Related Data Allergies/Adverse Reactions: contrast dye Allergy (Uncoded 08/29/18 17:38) wasp Allergy (Uncoded 08/29/18 17:38) Past Medical History - General Information source: Patient - Social History Smoking Status: Current Every Day Smoker Cigarette use (# per day): Yes Chew tobacco use (# tins/day): No Frequency of alcohol use: None Drug Abuse: Methamphetamine Lives with: Family Family History: Reviewed & Not Pertinent - Old toward on the day of will Patient has suicidal ideation: Yes Patient has homicidal ideation: No - Past Medical History Cardiac Medical History: Denies: Hx Congestive Heart Failure, Hx Heart Attack, Hx Hypertension Pulmonary Medical History: Reports: Hx Asthma Denies: Hx Bronchitis, Hx COPD, Hx Pneumonia, Hx Tuberculosis Neurological Medical History: Reports: Hx Migraine. Denies: Hx Seizures Renal/ Medical History: Denies: Hx End Stage Renal Disease, Hx Kidney Stones, Hx Peritoneal Dialysis GI Medical History: Denies: Hx Cirrhosis, Hx Gastroesophageal Reflux Disease, Hx Ulcer Musculoskeletal Medical History: Denies Hx Arthritis, Denies Hx Multiple Sclerosis Skin Medical History: Reports Hx MRSA Psychiatric Medical History: Reports: Hx Attention Deficit Hyperactivity Disorder - defiant disorder, Hx Bipolar Disorder Denies: Hx Depression, Hx Schizophrenia Past Surgical History: Reports: Hx Cholecystectomy, Hx Genitourinary Surgery, Hx Tonsillectomy - adnoids - Immunizations Immunizations up to date: Yes Hx Diphtheria, Pertussis, Tetanus Vaccination: Yes Review of Systems - Review of Systems Notes: Constitutional: denies: Chills, Diaphoresis, Fever, Malaise, Weakness EENT: denies: Eye discharge, Blurred vision, Tearing, Double vision, Nose congestion, Nose discharge, Throat swelling, Mouth pain Cardiovascular: denies: Palpitations, Heart racing, Orthopnea, Dyspnea, Chest pain Respiratory: denies: Cough, Hurts to breathe, Wheezing, Shortness of breath Gastrointestinal: denies: Abdominal pain, Diarrhea, Nausea, Vomiting, Black stools, bright red blood in stool Genitourinary: denies: Burning, Dysuria, Discharge, Frequency, Flank pain, Hematuria Musculoskeletal: denies: Joint pain, Joint swelling, Muscle pain, Muscle stiffness, back pain Hematologic/Lymphatic: denies: Anemia, Easy bleeding, Easy bruising, Blood clots Neurological/Psychological: denies: Confusion, Dementia,. Does complain of substance abuse and depression. Skin: No lesions, no masses, no skin breakdown, no abscesses Physical Exam - Vital signs Vitals: Temp Pulse Resp BP Pulse Ox 98.4 F 96 20 106/64 100 08/29/18 17:50 08/29/18 17:50 08/29/18 17:50 08/29/18 17:50 08/29/18 17:50 Interpretation: Normal - General General appearance: Appears well, Alert - HEENT Head: Normocephalic, Atraumatic Eyes: Normal Pupils: PERRL - Respiratory Respiratory status: No respiratory distress Chest status: Nontender Breath sounds: Normal Chest palpation: Normal - Cardiovascular Rhythm: Regular Heart sounds: Normal auscultation Murmur: No - Abdominal Inspection: Normal Distension: No distension Bowel sounds: Normal Tenderness: Nontender Organomegaly: No organomegaly - Back Back: Normal, Nontender - Extremities General upper extremity: Normal inspection, Nontender, Normal color, Normal ROM , Normal temperature General lower extremity: Normal inspection, Nontender, Normal color, Normal ROM , Normal temperature, Normal weight bearing. No: Xiomara's sign - Neurological Neuro grossly intact: Yes Cognition: Normal Orientation: AAOx4 [place] Coma Scale Eye Opening: Spontaneous [place] Coma Scale Verbal: Oriented [place] Coma Scale Motor: Obeys Commands [place] Coma Scale Total: 15 Speech: Normal Motor strength normal: LUE, RUE, LLE, RLE Sensory: Normal - Psychological Associated symptoms: Normal affect, Tearful - Skin Skin Temperature: Warm Skin Moisture: Dry Skin Color: Normal Course - Re-evaluation Re-evalutation: 08/29/18 20:58 At this time patient does not meet IVC criteria. Does not have a plan to harm herself. Does not want to stay after all. Offered her treatment overnight for her depression and to be seen by mental health in the morning however patient decided she would rather go home. Mother is in agreement with her decision at this time. I have advised her to return for any worsening symptoms or concerns. Laboratory 08/29/18 08/29/18 08/29/18 18:30 18:30 18:30 WBC 11.4 H RBC 4.74 Hgb 15.2 Hct 43.2 MCV 91 MCH 32.0 MCHC 35.1 RDW 12.7 Plt Count 264 Seg Neutrophils % 55.1 Lymphocytes % 33.7 Monocytes % 8.0 Eosinophils % 2.4 Basophils % 0.8 Absolute Neutrophils 6.3 Absolute Lymphocytes 3.8 Absolute Monocytes 0.9 Absolute Eosinophils 0.3 Absolute Basophils 0.1 Sodium 142.4 Potassium 4.1 Chloride 102 Carbon Dioxide 29 Anion Gap 11 BUN 14 Creatinine 0.74 Est GFR ( Amer) > 60 Est GFR (Non-Af Amer) > 60 Glucose 71 L Calcium 9.9 Total Bilirubin 0.5 Direct Bilirubin 0.2 Neonat Total Bilirubin Not Reportable Neonat Direct Bilirubin Not Reportable Neonat Indirect Bili Not Reportable AST 19 ALT 19 Alkaline Phosphatase 64 Total Protein 7.6 Albumin 4.4 TSH 2.51 Free T4 1.15 Urine Color Urine Appearance Urine pH Ur Specific [place] Urine Protein Urine Glucose (UA) Urine Ketones Urine Blood Urine Nitrite Urine Bilirubin Urine Urobilinogen Ur Leukocyte Esterase Urine WBC (Auto) Urine RBC (Auto) Squamous Epi Cells Auto Urine Mucus (Auto) Urine Ascorbic Acid Urine HCG, Qual Salicylates < 1.0 L Urine Opiates Screen Urine Methadone Screen Acetaminophen < 10 L Ur Barbiturates Screen Ur Phencyclidine Scrn Ur Amphetamines Screen U Benzodiazepines Scrn Urine Cocaine Screen U Marijuana (THC) Screen Serum Alcohol < 10 08/29/18 08/29/18 18:30 18:30 WBC RBC Hgb Hct MCV MCH MCHC RDW Plt Count Seg Neutrophils % Lymphocytes % Monocytes % Eosinophils % Basophils % Absolute Neutrophils Absolute Lymphocytes Absolute Monocytes Absolute Eosinophils Absolute Basophils Sodium Potassium Chloride Carbon Dioxide Anion Gap BUN Creatinine Est GFR ( Amer) Est GFR (Non-Af Amer) Glucose Calcium Total Bilirubin Direct Bilirubin Neonat Total Bilirubin Neonat Direct Bilirubin Neonat Indirect Bili AST ALT Alkaline Phosphatase Total Protein Albumin TSH Free T4 Urine Color YELLOW Urine Appearance SLIGHTLY-CLOUDY Urine pH 7.0 Ur Specific [place] 1.028 Urine Protein NEGATIVE Urine Glucose (UA) NEGATIVE Urine Ketones NEGATIVE Urine Blood NEGATIVE Urine Nitrite NEGATIVE Urine Bilirubin NEGATIVE Urine Urobilinogen 4.0 H Ur Leukocyte Esterase NEGATIVE Urine WBC (Auto) 1 Urine RBC (Auto) 1 Squamous Epi Cells Auto 1 Urine Mucus (Auto) RARE Urine Ascorbic Acid NEGATIVE Urine HCG, Qual NEGATIVE Salicylates Urine Opiates Screen NEGATIVE Urine Methadone Screen NEGATIVE Acetaminophen Ur Barbiturates Screen NEGATIVE Ur Phencyclidine Scrn NEGATIVE Ur Amphetamines Screen U Benzodiazepines Scrn NEGATIVE Urine Cocaine Screen NEGATIVE U Marijuana (THC) Screen NEGATIVE Serum Alcohol - Vital Signs Vital signs: Temp Pulse Resp BP Pulse Ox 98.4 F 96 20 106/64 100 08/29/18 17:50 08/29/18 17:50 08/29/18 17:50 08/29/18 17:50 08/29/18 17:50 - Laboratory Result Diagrams: 08/29/18 18:30 08/29/18 18:30 Laboratory results interpreted by me: 08/29/18 08/29/18 08/29/18 18:30 18:30 18:30 WBC 11.4 H Glucose 71 L Urine Urobilinogen 4.0 H Salicylates < 1.0 L Acetaminophen < 10 L Discharge - Discharge Clinical Impression: Methamphetamine abuse Depression Qualifiers: Depression Type: major depressive disorder Major depression recurrence: recurrent Active/Remission status: currently active Major depression episode severity: mild Qualified Code(s): F33.0 - Major depressive disorder, recurrent, mild Condition: Good Disposition: HOME, SELF-CARE Instructions: Depression ([facility]), Drug Screening ([facility]) Additional Instructions: You have been offered help for your substance abuse and depression today but you have decided not to stay. Currently you do not meet criteria for an involuntary commitment proceeding. In the event that you develop any worsening symptoms especially if you are having thoughts of wanting to harm herself or others you should return here immediately. We are starting you on medication that may help with your anxiety which is related to your methamphetamine substance abuse. Please make an immediate follow-up appointment with a mental health provider. Please return immediately if you would like to be re-seen. Prescriptions: Buspirone HCl [Buspar 10 mg Tablet] 10 mg PO BID 14 Days #28 tablet Referrals: [facility] [Provider Group] - Follow up as needed [facility] [Provider Group] - Follow up as needed [facility] [Outside] - Follow up as needed
[2018-08-29 19:00] LABS: ABSOLUTE BASOPHILS # (AUTO) 0.1 10^3/uL (0.0-0.2); ABSOLUTE EOSINOPHILS # (AUTO) 0.3 10^3/uL (0.0-0.6); ABSOLUTE LYMPHOCYTES (AUTO) 3.8 10^3/uL (0.5-4.7); ABSOLUTE MONOCYTES (AUTO) 0.9 10^3/uL (0.1-1.4); ABSOLUTE NEUT (AUTO) 6.3 10^3/uL (1.7-8.2); BASOPHILS % (AUTO) 0.8 % (0-2); EOSINOPHILS % (AUTO) 2.4 % (0-6); HEMATOCRIT 43.2 % (36.0-47.0); HEMOGLOBIN 15.2 g/dL (12.0-15.5); LYMPHOCYTES % (AUTO) 33.7 % (13-45); MEAN CORPUSCULAR HGB CONC 35.1 g/dL (32.0-36.0); MEAN CORPUSCULAR VOLUME 91 fl (80-97); PLATELET COUNT 264 10^3/uL (150-450); RED BLOOD COUNT 4.74 10^6/uL (3.72-5.28); RED CELL DISTRIBUTION WIDTH 12.7 % (11.5-14.0); SEGMENTED NEUTROPHILS % (AUTO) 55.1 % (42-78); TOTAL CELLS COUNTED % (AUTO) 100 %; WHITE BLOOD COUNT 11.4 10^3/uL (4.0-10.5)
[2018-08-29 19:05] LABS: APPEARANCE,URINE SLIGHTLY-CLOUDY; BILIRUBIN,URINE NEGATIVE (NEGATIVE); COLOR,URINE YELLOW; GLUCOSE, URINE NEGATIVE (NEGATIVE); KETONES,URINE NEGATIVE (NEGATIVE); LEUKOCYTE ESTERASE,URINE NEGATIVE (NEGATIVE); NITRITE,URINE NEGATIVE (NEGATIVE); PROTEIN,URINE NEGATIVE (NEGATIVE); URINE SPECIFIC GRAVITY 1.028
[2018-08-29 19:12] LABS: ALANINE AMINOTRANSFERASE 19 U/L (9-52); ALBUMIN 4.4 g/dL (3.5-5.0); ALKALINE PHOSPHATASE 64 U/L (38-126); ANION GAP 11 (5-19); ASPARTATE AMINO TRANSFERASE 19 U/L (14-36); BILIRUBIN,DIRECT 0.2 mg/dL (0.0-0.4); BILIRUBIN,TOTAL 0.5 mg/dL (0.2-1.3); BLOOD UREA NITROGEN 14 mg/dL (7-20); CALCIUM 9.9 mg/dL (8.4-10.2); CARBON DIOXIDE 29 mmol/L (22-30); CHLORIDE 102 mmol/L (98-107); GLUCOSE 71 mg/dL (75-110); POTASSIUM 4.1 mmol/L (3.6-5.0); SODIUM 142.4 mmol/L (137-145); TOTAL PROTEIN 7.6 g/dL (6.3-8.2)
[2018-08-29 19:13] LABS: ACETAMINOPHEN < 10 ug/mL (10-30); ALCOHOL < 10 mg/dL (NONE DETECTED); SALICYLATE < 1.0 mg/dL (2.0-20.0)
[2018-08-29 19:21] LABS: URINE BARBITURATES SCREEN NEGATIVE; URINE BENZODIAZEPINES SCREEN NEGATIVE; URINE COCAINE SCREEN NEGATIVE; URINE MARIJUANA (THC) SCREEN NEGATIVE; URINE METHADONE SCREEN NEGATIVE; URINE PHENCYCLIDINE SCREEN NEGATIVE
[2018-08-29 19:28] LABS: FREE T4 (FREE THYROXINE) 1.15 ng/dL (0.78-2.19)
[2018-08-29 19:42] LABS: THYROID STIMULATING HORMONE 2.51 uIU/mL (0.47-4.68)
== END 2018-08-29 19:21 | disposition home or self-care (01) ==
LOC: ER 17:36
DX: F33.0 Major depressive disorder, recurrent, mild (principal); F15.10 Other stimulant abuse, uncomplicated; R45.851 Suicidal ideations; F17.210 Nicotine dependence, cigarettes, uncomplicated; Z86.14 Personal history of Methicillin resistant Staphylococcus aureus infection; Z90.49 Acquired absence of other specified parts of digestive tract
CPT/HCPCS: 36415; 80053; 80307; 81001; 81025; 84439; 84443; 85025; 99285

== ENCOUNTER 2018-08-30 06:56 | Emergency (ER) | payer SELFPAY ==
[2018-08-30 07:12] VITALS: BP 107/62
--- NOTE | 2018-08-30 07:39 | ER Document Report ---
Doctor's Note Notes: 08/30/18 07:39 Patient left before my evaluation. Nursing note states the patient denies any homicidal suicidal ideation.
== END 2018-08-30 07:56 | disposition left against medical advice (07) ==
LOC: ER 06:56
DX: Z53.21 Procedure and treatment not carried out due to patient leaving prior to being seen by health care provider (principal)

== ENCOUNTER 2018-11-11 19:41 | Emergency (ER) | payer BC ==
[2018-11-11 20:09] VITALS: BP 111/64
--- NOTE | 2018-11-11 21:46 | ER Document Report ---
ED Psych Disorder / Suicide - General Chief Complaint: Psych Problem Stated Complaint: POSSIBLE OVERDOSE Time Seen by Provider: 11/11/18 21:46 Primary Care Provider: DEBBIE VAZQUEZ JR, MD [Primary Care Provider] - Follow up as needed Notes: 23-year-old female patient emergency department for evaluation of substance abuse. Patient has been seen here multiple times for the same. Patient states that she was recently started on some prescription medications to help with her addiction. She thinks it is making her worse. She decided to take 3 of them today. Got nervous because was not sure what the side effects were. Denies that this was an attempt to hurt her self. Patient states that she would like help but every time she tries to get help she relapses. She has no plan to hurt her self. TRAVEL OUTSIDE OF THE [place] IN LAST 30 DAYS: No - HPI Onset: This morning Quality of pain: No pain Severity: None Pain Level: Denies Suicide Risk Factors: Substance abuse - Related Data Allergies/Adverse Reactions: contrast dye Allergy (Uncoded 08/29/18 17:38) wasp Allergy (Uncoded 08/29/18 17:38) Past Medical History - General Information source: Patient - Social History Smoking Status: Current Every Day Smoker Frequency of alcohol use: None Drug Abuse: Methamphetamine Family History: Reviewed & Not Pertinent - Old toward on the day of will Patient has suicidal ideation: Yes Patient has homicidal ideation: No - Past Medical History Cardiac Medical History: Denies: Hx Congestive Heart Failure, Hx Heart Attack, Hx Hypertension Pulmonary Medical History: Reports: Hx Asthma Denies: Hx Bronchitis, Hx COPD, Hx Pneumonia, Hx Tuberculosis Neurological Medical History: Reports: Hx Migraine. Denies: Hx Seizures Renal/ Medical History: Denies: Hx End Stage Renal Disease, Hx Kidney Stones, Hx Peritoneal Dialysis GI Medical History: Denies: Hx Cirrhosis, Hx Gastroesophageal Reflux Disease, Hx Ulcer Musculoskeletal Medical History: Denies Hx Arthritis, Denies Hx Multiple Sclerosis Skin Medical History: Reports Hx MRSA Psychiatric Medical History: Reports: Hx Attention Deficit Hyperactivity Disorder - defiant disorder, Hx Bipolar Disorder Denies: Hx Depression, Hx Schizophrenia Past Surgical History: Reports: Hx Cholecystectomy, Hx Genitourinary Surgery, Hx Tonsillectomy - adnoids - Immunizations Immunizations up to date: Yes Hx Diphtheria, Pertussis, Tetanus Vaccination: Yes Review of Systems - Review of Systems Notes: Constitutional: denies: Chills, Diaphoresis, Fever, Malaise, Weakness EENT: denies: Eye discharge, Blurred vision, Tearing, Double vision, Nose congestion, Nose discharge, Throat swelling, Mouth pain Cardiovascular: denies: Palpitations, Heart racing, Orthopnea, Dyspnea, Chest pain Respiratory: denies: Cough, Hurts to breathe, Wheezing, Shortness of breath Gastrointestinal: denies: Abdominal pain, Diarrhea, Nausea, Vomiting, Black stools, bright red blood in stool Genitourinary: denies: Burning, Dysuria, Discharge, Frequency, Flank pain, Hematuria Musculoskeletal: denies: Joint pain, Joint swelling, Muscle pain, Muscle stiffness, back pain Hematologic/Lymphatic: denies: Anemia, Easy bleeding, Easy bruising, Blood clots Neurological/Psychological: denies: Confusion, Dementia, Depression, Loss of consciousness. She does have some depression. Occasional passive suicidal ideation. Admits to methamphetamine substance abuse of marijuana on occasions. Skin: No lesions, no masses, no skin breakdown, no abscesses Physical Exam - Vital signs Vitals: Temp Pulse Resp BP Pulse Ox 98.9 F 83 18 111/64 99 11/11/18 20:08 11/11/18 20:08 11/11/18 20:08 11/11/18 20:08 11/11/18 20:08 Interpretation: Normal - General General appearance: Appears well, Alert - HEENT Head: Normocephalic, Atraumatic Eyes: Normal Pupils: PERRL - Respiratory Respiratory status: No respiratory distress Chest status: Nontender Breath sounds: Normal Chest palpation: Normal - Cardiovascular Rhythm: Regular Heart sounds: Normal auscultation Murmur: No - Abdominal Inspection: Normal Distension: No distension Bowel sounds: Normal Tenderness: Nontender Organomegaly: No organomegaly - Back Back: Normal, Nontender - Extremities General upper extremity: Normal inspection, Nontender, Normal color, Normal ROM, Normal temperature General lower extremity: Normal inspection, Nontender, Normal color, Normal ROM, Normal temperature, Normal weight bearing. No: Xiomara's sign - Neurological Neuro grossly intact: Yes Cognition: Normal Orientation: AAOx4 [place] Coma Scale Eye Opening: Spontaneous [place] Coma Scale Verbal: Oriented [place] Coma Scale Motor: Obeys Commands [place] Coma Scale Total: 15 Speech: Normal Motor strength normal: LUE, RUE, LLE, RLE Sensory: Normal - Psychological Associated symptoms: Tearful - Patient is crying and tearful. No endorsement of suicidal ideation. - Skin Skin Temperature: Warm Skin Moisture: Dry Skin Color: Normal Course - Re-evaluation Re-evalutation: 11/12/18 02:53 Had a very long discussion with the patient and the patient's mother about her willingness to help her with her addiction. She meets no criteria for involuntary admission at this time. She has passive suicidal ideation which is even questionable if this exists. States that she has access to mental health provider. On current medications. Does not have a plan to hurt her self. Offered her help. Was informed by the nurse that she would like to leave. Will DC at this time. - Vital Signs Vital signs: Temp Pulse Resp BP Pulse Ox 98.9 F 83 18 111/64 99 11/11/18 20:08 11/11/18 20:08 11/11/18 20:08 11/11/18 20:08 11/11/18 20:08 Discharge - Discharge Clinical Impression: Methamphetamine abuse Disposition: AGAINST MEDICAL ADVICE Instructions: Ampetamine Abuse ([facility]) Referrals: DEBBIE VAZQUEZ JR, MD [Primary Care Provider] - Follow up as needed
== END 2018-11-11 22:17 | disposition left against medical advice (07) ==
LOC: ER 19:41
DX: F15.10 Other stimulant abuse, uncomplicated (principal); F17.200 Nicotine dependence, unspecified, uncomplicated; J45.909 Unspecified asthma, uncomplicated; Z91.041 Radiographic dye allergy status; Z91.038 Other insect allergy status
CPT/HCPCS: 99283

== ENCOUNTER 2019-10-15 18:55 | Emergency (ER) | payer BC ==
[2019-10-15 19:26] VITALS: BP 114/69
== END 2019-10-15 23:22 | disposition left against medical advice (07) ==
LOC: ER 18:55
DX: Z53.21 Procedure and treatment not carried out due to patient leaving prior to being seen by health care provider (principal); R05 Cough